=== PATIENT | male | born 1955 | race Caucasian/White ===

== ENCOUNTER 2016-12-18 13:17 | Emergency (ER) | payer OTHER ==
[~2016-12-18] VITALS: Ht 175.3 cm; Wt 85.2 kg
[~2016-12-18 13:17] MED LIST: ALEVE220 M2 PO; AMBIEN10 MG PO; ASPIRIN325 MG PO; Ambien PO; CITALOPRAM HBR10 MG PO; CITALOPRAM HBR20 MG PO; CLONAZEPAM0.5 MG PO; CRESTOR5 MG PO; Ecotrin PO; OSTEO BI-FLEX1 EAC2 PO; PERCOCET 5/31 TABLET PO; PRAVASTATIN SOD10 MG PO; PRAVASTATIN SOD80 MG PO; PRILOSEC OTC20 MG PO; PROZAC20 MG PO; Pravachol PO; TUMS500 MG PO; Tums,OsCal PO; ZOLPIDEM TARTRA10 MG PO; ZYRTEC10 M3 PO; celeXA PO
[2016-12-18 14:58] LABS: MCHC 35.2 G/DL (30.0-36.0); MCV 88.1 FL (86-99); MEAN PLAT.VOLUME 9.8 uM^3 (9.0-12.4); PLATELET COUNT 194 K/uL (156-360); RBC DIS.WIDTH-CV 11.8 % (11.8-14.6); RBC DIS.WIDTH-SD 37.8 % (39-53); RED BLOOD COUNT 4.77 M/uL (4.00-5.50); WHITE BLOOD COUNT 4.9 K/uL (4.1-10.2)
[2016-12-18 15:55] LABS: CHLORIDE 107 mEq/L (99-109); POTASSIUM 3.7 mEq/L (3.7-5.4); SODIUM 139 mEq/L (136-147)
[2016-12-18 15:56] LABS: GLUCOSE 102 mg/dL (70-99)
[2016-12-18 15:58] LABS: ANION GAP 8 MEQ/L (2-14)
[2016-12-18 16:00] LABS: GFR ESTIMATE (CALCULATED) > 59 mL/min/
[2016-12-18 16:01] LABS: UREA NITROGEN (BUN) 12 mg/dL (9-23)
[2016-12-18 18:25] VITALS: BP 166/84
== END 2016-12-18 18:27 | disposition home or self-care (01) ==
LOC: EME 13:17
DX: H53.2 Diplopia (principal); E78.5 Hyperlipidemia, unspecified; Z86.73 Personal history of transient ischemic attack (TIA), and cerebral infarction without residual deficits; Z85.828 Personal history of other malignant neoplasm of skin
CPT/HCPCS: 70450; 70551; 71020; 80048; 85027; 93005; 99281; 99285